=== PATIENT | male | born 1975 | race Caucasian/White ===

== ENCOUNTER 2022-12-27 07:53 | Outpatient (CLI) | payer SELFPAY | END 2022-12-27 07:54 | disposition home or self-care (01) | LOC: NFLDREF 12-29 09:28 | PROVIDERS: PCP Physician Assistant Medical; Referring Provider Physician Assistant Medical; Visit Provider Physician Assistant Medical | DX: E78.5 Hyperlipidemia, unspecified (principal) | CPT/HCPCS: 80053; 80061 ==